=== PATIENT | female | born 1975 | race Caucasian/White ===

== ENCOUNTER 2017-06-11 17:31 | Emergency (ER) | payer OTHER ==
[2017-06-11 17:46] VITALS: BP 170/109; PULSE 75; RESP 24; O2SAT 100
[2017-06-11 18:12] VITALS: O2SAT 100
[2017-06-11] MEDS ORDERED: RESP: ALBUTEROL 2.5 MG/IPRATROPIUM 0.5 MG NEB (SCH) NEB ONE (19:30)
[2017-06-11 19:38] VITALS: BP 130/78; PULSE 91; RESP 20; O2SAT 100
[2017-06-11 20:32] LABS: AUTOMATED NEUTROPHIL # 7.1 TH/MM3 (1.8-7.7); BASOPHIL % 0.3 % (0.0-2.0); EOSINOPHIL # 0.1 TH/MM3 (0-0.4); EOSINOPHIL % 0.5 % (0.0-4.0); HEMATOCRIT 37.8 % (35.0-46.0); HEMOGLOBIN 12.8 GM/DL (11.6-15.3); LYMPH % 23.7 % (9.0-44.0); LYMPHOCYTE # 2.4 TH/MM3 (1.0-4.8); MEAN CELL VOLUME 99.8 FL (80.0-100.0); MEAN CORPUSCULAR HEMOGLOBIN 33.9 PG (27.0-34.0); MONO % 5.4 % (0.0-8.0); MONOCYTE # 0.5 TH/MM3 (0-0.9); NEUT % 70.1 % (16.0-70.0); PLATELET COUNT 260 TH/MM3 (150-450); RED BLOOD COUNT 3.78 MIL/MM3 (4.00-5.30); WHITE BLOOD COUNT 10.1 TH/MM3 (4.0-11.0)
[2017-06-11 20:51] VITALS: O2SAT 100
--- NOTE | 2017-06-11 21:11 | RADRPT ---
EXAM DATE/TIME: 06/11/2017 19:52 [place] COMPARISON: No previous studies available for comparison. INDICATIONS : Chest tightness and short of breath for three days. MEDICAL HISTORY : Asthma SURGICAL HISTORY : None. ENCOUNTER: Initial ACUITY: 3 days PAIN SCORE: 0/10 LOCATION: Bilateral chest FINDINGS: PA and lateral views of the chest demonstrate the lungs to be symmetrically aerated without evidence of mass, infiltrate or effusion. The cardiomediastinal contours are unremarkable. Osseous structure s are intact. CONCLUSION: No acute disease. Shalom Banks MD on June 11, 2017 at 21:09 Board Certified Radiologist. This report was verified electronically.
[2017-06-11] MEDS ORDERED: guaiFENesin/CODEINE SYRUP 200 MG/20 MG/10 ML CUP PO ONE (21:15)
[2017-06-11] MEDS ORDERED: AZITHROMYCIN 250 MG TAB PO ONE (21:30)
[2017-06-11] MEDS ORDERED: predniSONE 50 MG TAB PO ONE (21:30)
--- NOTE | 2017-06-11 21:33 | PD ---
HPI Chief Complaint: Respiratory Symptoms Time Seen by Provider: 19:16 Travel History International Travel<30 days: No Contact w/Intl Traveler<30days: No Traveled to known affect area: No History of Present Illness HPI Patient is a 41-year-old female with a history of asthma she has had 3 days of progressive worsening of wheezing shortness of breath not responding to her inhaler. She has had an upper respiratory infection which possibly is stimulating her reactive airway. Patient in the ER is grunting when she breathes however she satting 99% on room air and is not obviously tachypneic immediately I start duo nebs and reevaluate after the nebs she stop grunting and now I can hear much more wheezing expiratory wheeze diffuse in all huang prednisone will be given and empirically I will treat her with azithromycin for superinfection with her inflammation of her lung. As well as prednisone for immune suppression of the inflammatory response. She has not seen another doctor for this complaint and possibly upper respiratory infection is making her symptoms of asthma worse and she is is not responding to her home treatment of Pro Air PFSH Past Medical History ?: Not Social History Tobacco Use: No Allergies-Medications (Allergen,Severity, Reaction): Coded Allergies: No Known Allergies (Verified Allergy, Unknown, 06/11/17) Reported Meds & Prescriptions Reported Meds & Active Scripts Active Ventolin Hfa 18 GM Inh (Albuterol Sulfate) 90 Mcg/Act Aer 2 Puff INH Q6H PRN Guaiatussin AC Liq (Guaifenesin-Codeine Liq) 100-10 Mg/5 Ml Syrp 10 Ml PO Q6H PRN Azithromycin 250 Mg Tab 250 Mg PO DIRECTED Take 2 tabs (500 mg) on day 1 then 1 tab daily x 4 days. Prednisone 50 Mg Tab 50 Mg PO DAILY Reported Proair Hfa 8.5 GM Inh (Albuterol Sulfate) 90 Mcg/Act Aer 2 Puff INH Q4-6H PRN 108 mcg/actuation Symbicort Inh (Budesonide/Formoterol Fumarate) 160-4.5 Mcg/Act Aero 2 Puff INH Q12HR Duoneb (Ipratropium-Albuterol Neb) 0.5-2.5 Mg/3 Ml Neb 1 Nebule INH Q6HR NEB Review of Systems Except as stated in HPI: all other systems reviewed are Neg Physical Exam Narrative GENERAL: Patient is grunting very red-faced appears to be very uncomfortable with her reactive airway but she is not tachypneic she is not desaturating there is no obvious severe respiratory distress SKIN: Warm and dry. Patient has reddened face HEAD: Atraumatic. Normocephalic. EYES: Pupils equal and round. No scleral icterus. No injection or drainage. ENT: No nasal bleeding or discharge. Mucous membranes pink and moist. NECK: Trachea midline. No JVD. CARDIOVASCULAR: Regular rate and rhythm. RESPIRATORY: No accessory muscle use. Clear to auscultation. Breath sounds equal bilaterally. Diffuse wheezing in all huang expiratory with a grunting sound that interferes with my auscultation of her lungs completely GASTROINTESTINAL: Abdomen soft, non-tender, nondistended. Hepatic and splenic margins not palpable. MUSCULOSKELETAL: Extremities without clubbing, cyanosis, or edema. No obvious deformities. NEUROLOGICAL: Awake and alert. No obvious cranial nerve deficits. Motor grossly within normal limits. Five out of 5 muscle strength in the arms and legs. Normal speech. PSYCHIATRIC: Appropriate mood and affect; insight and judgment normal. Data Data Last Documented VS Vital Signs Date Time Temp Pulse Resp B/P (MAP) Pulse Ox O2 Delivery O2 Flow Rate FiO2 06/11/17 23:26 98.8 92 18 131/66 (87) 100 06/11/17 21:39 Room Air 06/11/17 20:51 21 Orders Orders Albuterol-Ipratropium Neb (Duoneb Neb) (06/11/17 19:30) Chest, Pa & Lat (06/11/17 ) Complete Blood Count With Diff (06/11/17 19:38) Guaifen-Cod 200-20 Mg/10ml Liq (Robituss (06/11/17 21:15) Azithromycin (Zithromax) (06/11/17 21:30) Prednisone (Deltasone) (06/11/17 21:30) Prednisone (Deltasone) (06/11/17 21:45) Influenzae A/B Antigen (06/11/17 22:29) Ed Discharge Order (06/11/17 23:14) Labs Laboratory Tests Test 06/11/17 20:16 White Blood Count 10.1 TH/MM3 Red Blood Count 3.78 MIL/MM3 Hemoglobin 12.8 GM/DL Hematocrit 37.8 % Mean Corpuscular Volume 99.8 FL Mean Corpuscular Hemoglobin 33.9 PG Mean Corpuscular Hemoglobin Concent 34.0 % Red Cell Distribution Width 14.0 % Platelet Count 260 TH/MM3 Mean Platelet Volume 8.0 FL Neutrophils (%) (Auto) 70.1 % Lymphocytes (%) (Auto) 23.7 % Monocytes (%) (Auto) 5.4 % Eosinophils (%) (Auto) 0.5 % Basophils (%) (Auto) 0.3 % Neutrophils # (Auto) 7.1 TH/MM3 Lymphocytes # (Auto) 2.4 TH/MM3 Monocytes # (Auto) 0.5 TH/MM3 Eosinophils # (Auto) 0.1 TH/MM3 Basophils # (Auto) 0.0 TH/MM3 CBC Comment DIFF FINAL Differential Comment MDM Medical Decision Making Medical Screen Exam Complete: Yes Emergency Medical Condition: Yes Differential Diagnosis asthma vs reactive airway to viral illness or URI or flu or strep or allergies or weather change or intrinsc astham attack. she reports it happens always this time of year Narrative Course duo nebs and prednisone and azithromycin and cough med syrup and she feels much improved , observed over 4 hrs and d/c home follow up as out pt Diagnosis Primary Impression: Asthma Qualified Codes: J45.909 - Unspecified asthma, uncomplicated Additional Impression: Upper respiratory infection Patient Instructions: Asthma (ED), General Instructions Scripts Albuterol 18 GM Inh (Ventolin Hfa 18 GM Inh) 90 Mcg/Act Aer 2 PUFF INH Q6H Y for SHORTNESS OF BREATH, #1 INHALER 0 Refills Prov: Mathew Purcell MD 06/11/17 Guaifenesin-Codeine Liq (Guaiatussin AC Liq) 100-10 Mg/5 Ml Syrp 10 ML PO Q6H Y for COUGH, #60 ML Prov: Mathew Purcell MD 06/11/17 Azithromycin (Azithromycin) 250 Mg Tab 250 MG PO DIRECTED for Infection, #6 TAB 0 Refills Take 2 tabs (500 mg) on day 1 then 1 tab daily x 4 days. Prov: Mathew Purcell MD 06/11/17 Prednisone (Prednisone) 50 Mg Tab 50 MG PO DAILY, #5 TAB 0 Refills Prov: Mathew Purcell MD 06/11/17 Disposition: 01 DISCHARGE HOME Condition: Good Mathew Purcell MD Jun 11, 2017 21:33
[2017-06-11 21:39] VITALS: BP 155/78; PULSE 103; RESP 22; O2SAT 100
[2017-06-11] MEDS ORDERED: SYMB160A INH (21:39)
[2017-06-11] MEDS ORDERED: IPRASOL INH (21:39)
[2017-06-11] MEDS ORDERED: ALBUAER3 INH (21:39)
[2017-06-11] MEDS ORDERED: predniSONE 20 MG TAB PO ONE (21:45)
[2017-06-11] MEDS ORDERED: PRED50 PO (23:12)
[2017-06-11] MEDS ORDERED: AZIT250T3 PO (23:12)
[2017-06-11] MEDS ORDERED: VENTAER INH (23:14)
[2017-06-11] MEDS ORDERED: GUAISYP5 PO (23:14)
[2017-06-11 23:26] VITALS: BP 131/66; TEMP 98.8
== END 2017-06-11 23:35 | disposition home or self-care (01) ==
LOC: NEPC 17:31
DX: J45.909 Unspecified asthma, uncomplicated (principal); J06.9 Acute upper respiratory infection, unspecified
CPT/HCPCS: 71046; 85025; 87804; 94640; 94664; 99284; J7512